=== PATIENT | female | born 1970 | race Caucasian/White ===

== ENCOUNTER → 2016-04-25 | Outpatient (CLI) | payer BC ==
[~2016-04-25] MED LIST: CITA40TA12 PO; CLR10 PO; PHEN-712 PO; SILV1CRE73 TOP; TRAM-10 PO
--- NOTE | 2016-04-26 21:17 | DIAGNOSTIC IMAGING REPORT ---
PET/CT CLINICAL HISTORY: Right breast cancer. PET/CT for initial staging. TECHNIQUE: A PET/CT was performed from the skull base through the upper thighs following intravenous injection of 13.64 mCi of F 18 FDG IV. The injection was performed at 7:30 AM on April 25, 2016 and imaging began at 8:28 AM on April 25, 2016. Unenhanced CT was performed for attenuation correction purposes and anatomic localization. COMPARISON STUDY: None. FINDINGS: Head and neck: No areas of suspicious FDG uptake are identified within the neck. There is no cervical lymphadenopathy. Chest: There is extensive FDG uptake within the superior right breast as well as the upper outer quadrant of the right breast. The SUV max is 18.5. A dominant mass is noted that measured approximately 5.2 cm in transverse dimension although is suboptimally assessed on this unenhanced CT. The FDG uptake extends toward the nipple. There is asymmetric right breast skin thickening. A right axillary lymph node measures 2.9 x 1.8 cm and has marked FDG uptake with an SUV max of 8. A 6 mm right retropectoral lymph node shown on image 67 is normal in size but demonstrates mild FDG uptake with an SUV max of 2.3. A right internal mammary lymph node shown on image 84 measures 1 cm and has an SUV max of 2. An additional right internal mammary lymph node shown on image 94 measures 9 mm and has an SUV max of 4.5. No suspicious pulmonary nodules are identified. Abdomen and Pelvis: No suspicious FDG uptake is identified within the abdomen or pelvis. There is no abdominal or pelvic lymphadenopathy. There is fatty infiltration of the liver. Musculoskeletal: There is mild multifocal FDG uptake within the thoracic spine and the lumbar spine. There is no corresponding abnormality on CT. This is not suggestive of metastatic disease. IMPRESSION: 1. Marked FDG uptake within the dominant superior right breast mass consistent with breast cancer. A portion of this mass abuts the right pectoralis major and there is loss of fat plane between the mass and the underlying muscle. FDG uptake extends toward the nipple with asymmetric right breast skin thickening which raises the possibility of dermal/lymphatic spread of tumor. 2. FDG avid right axillary, right internal mammary and right retropectoral lymphadenopathy consistent with erika spread of disease. Electronically signed by: Jose Luis Abdul M.D. 04/26/2016 9:15 PM Dictated Date/Time: 04/25/2016 10:12 AM
== END | disposition home or self-care (01) ==
LOC: C.PET 06:47
PROVIDERS: ATTEND Surgery
DX: C50.411 Malignant neoplasm of upper-outer quadrant of right female breast (principal)

== ENCOUNTER → 2016-05-26 | Outpatient (CLI) | payer BC ==
--- NOTE | 2016-05-26 14:45 | ECHOCARDIOGRAM REPORT ---
*NOTICE TO RECEIVING LIBERTARIAN AGENCY This information is strictly Confidential and protected under [place] law. [place] law prohibits you from making any further disclosure of this information unless further disclosure is expressly permitted by the written consent of the person to whom it pertains or is authorized by law. A general authorization for the release of medical or other information is not sufficient for this purpose. Hospital accepts no responsibility if the information is made available to any other person, INCLUDING THE PATIENT. Interpretation Summary * Name: ABRAHAM HARVEY Study Date: 05/26/2016 09:24 AM BP: 148/70 mmHg * Patient Location: [facility] HR: 68 * : 1970 (M/d/yyyy) Gender: Female Height: 67 in * Age: 46 yrs Ethnicity: CA Weight: 214 lb * Ordering Physician: Angelito Jolley * Referring Physician: Angelito Jolley * Performed By: Maye Soto RDCS * * Reason For Study: BREAST CA, EVAL EF PRE CHEMO * BSA: 2.1 m2 * History: NEOPLASM, BREAST CA, PRE-CHEMO * -- Conclusions -- * Left ventricular systolic function is normal. * No segmental left ventricular wall motion abnormalities are noted. * Ejection Fraction = 60-65%. * No significant valvular pathology. Procedure Details * Left Ventricle The left ventricle is normal in size. There is normal left ventricular wall thickness. Ejection Fraction = 60-65%. No segmental left ventricular wall motion abnormalities are noted. Left ventricular systolic function is normal. * Right Ventricle The right ventricle is normal size. The right ventricular systolic function is normal as assessed by tricuspid annular plane systolic excursion (TAPSE) (normal >1.5 cm). * Atria The left atrium is borderline dilated. Right atrial size is normal. No ASD detected; PFO is not assessed. * Mitral Valve The mitral valve is normal in structure and function. There is no mitral valve stenosis. Significant mitral regurgitation is absent. * Tricuspid Valve The tricuspid valve anatomy is normal. There is no tricuspid stenosis. Significant tricuspid regurgitation is absent. * Aortic Valve The aortic valve is normal in structure and function. No hemodynamically significant valvular aortic stenosis. There is no significant aortic regurgitation. * Pulmonic Valve The pulmonary valve is not well seen, but the Doppler examination is normal without significant regurgitation or stenosis. There is no pulmonic valvular regurgitation. * Great Vessels The aortic root is normal size. The pulmonary artery is not well visualized, but is probably normal size. * Pericardium/Pleural There is no pericardial effusion. * Great Vessels Normal inferior vena cava size and collapsability with sniff indicates a normal right atrial pressure of 3 mmHg * * MMode 2D Measurements and Calculations * IVSd 0.90 cm * IVSs 1.5 cm * * LVIDd 4.3 cm * LVIDs 2.8 cm * LVPWd 1.2 cm * LVPWs 1.8 cm * * IVS/LVPW 0.73 * FS 36.0 % * EDV(Teich) 84.0 ml * ESV(Teich) 28.6 ml * EF(Teich) 65.9 % * * EDV(cubed) 80.6 ml * ESV(cubed) 21.1 ml * EF(cubed) 73.8 % * % IVS thick 66.7 % * % LVPW thick 48.3 % * * LV mass(C)d 157.3 grams * LV mass(C)dI 75.6 grams/m\S\2 * LV mass(C)s 171.6 grams * LV mass(C)sI 82.4 grams/m\S\2 * * SV(Teich) 55.3 ml * SI(Teich) 26.6 ml/m\S\2 * SV(cubed) 59.5 ml * SI(cubed) 28.6 ml/m\S\2 * * LA dimension 3.6 cm * * LVAd ap4 24.1 cm\S\2 * LVLd ap4 7.0 cm * EDV(MOD-sp4) 66.7 ml * EDV(sp4-el) 70.1 ml * LVAs ap4 12.9 cm\S\2 * LVLs ap4 5.8 cm * ESV(MOD-sp4) 23.7 ml * ESV(sp4-el) 24.3 ml * EF(MOD-sp4) 64.5 % * EF(sp4-el) 65.3 % * * LVAd ap2 25.9 cm\S\2 * LVLd ap2 7.5 cm * EDV(MOD-sp2) 74.8 ml * EDV(sp2-el) 75.5 ml * LVAs ap2 14.4 cm\S\2 * LVLs ap2 6.7 cm * ESV(MOD-sp2) 26.5 ml * ESV(sp2-el) 26.2 ml * EF(MOD-sp2) 64.5 % * EF(sp2-el) 65.3 % * * LVLd %diff 6.8 % * EDV(MOD-bp) 71.5 ml * LVLs %diff 12.7 % * ESV(MOD-bp) 26.4 ml * EF(MOD-bp) 63.1 % * * SV(MOD-sp4) 43.0 ml * SI(MOD-sp4) 20.7 ml/m\S\2 * * SV(MOD-sp2) 48.3 ml * SI(MOD-sp2) 23.2 ml/m\S\2 * * SV(MOD-bp) 45.1 ml * SI(MOD-bp) 21.7 ml/m\S\2 * * SV(sp4-el) 45.8 ml * SI(sp4-el) 22.0 ml/m\S\2 * * SV(sp2-el) 49.3 ml * SI(sp2-el) 23.7 ml/m\S\2 * * * * Doppler Measurements and Calculations * MV E max sangeetha 84.4 cm/sec * MV A max sangeetha 64.5 cm/sec * * MV E/A 1.3 * * MV dec time 0.19 sec * * Ao V2 max 175.9 cm/sec * Ao max PG 12.4 mmHg * Ao max PG (full) 5.2 mmHg * * LV V1 max PG 7.2 mmHg * * LV V1 max 134.0 cm/sec * * * *
== END | disposition home or self-care (01) ==
LOC: C.CPL 08:59
PROVIDERS: ATTEND Internal Medicine Hematology & Oncology
DX: C50.911 Malignant neoplasm of unspecified site of right female breast (principal)